=== PATIENT | male | born 1985 ===

== ENCOUNTER → 2017-12-12 | Outpatient (CLI) | payer OTHER ==
[~2017-12-12] MED LIST: ATOR10TA24 PO; METF-411 PO
== END ==
LOC: SPU 08:23
PROVIDERS: ATTEND Physician Assistant Medical
DX: Z02.9 Encounter for administrative examinations, unspecified (principal)

== ENCOUNTER 2017-12-23 16:08 | Outpatient (RCR) | payer OTHER ==
[2017-12-12 13:01] VITALS: BP 161/104
[2017-12-12 14:18] LABS: PLATELET COUNT, AUTOMATED 246 K/uL (150-450)
[2017-12-12 15:00] VITALS: BP 168/104
--- NOTE | 2017-12-12 16:37 | ONCOLOGY FOLLOW UP NOTE ---
EVENT DATE: December 12, 2017 REFERRING PHYSICIAN JERMAN Blakely REASON FOR CONSULTATION Evaluation and management of hereditary hemochromatosis. HEMATOLOGY HISTORY Patient is a 32-year-old male who has a positive family history for hemochromatosis in hie maternal grandfather. Patient was checked for iron and was found to have high iron, so genetic testing for hemochromatosis was done which showed a compound heterozygous for C282Y mutation and H63D mutation. He has liver cirrhosis which showed mild fibrosis and steatohepatitis. His ferritin was high at 1009. Patient was referred for management of his hereditary hemochromatosis. PAST MEDICAL HISTORY 1. Hereditary hemochromatosis. 2. Hypertension. 3. Hypercholesterolemia. PAST SURGICAL HISTORY Liver biopsy, but no other surgeries. FAMILY HISTORY Maternal grandfather had hereditary hemochromatosis. Maternal grandmother with breast cancer. SOCIAL HISTORY Patient is with one child. He works for the [employer]. He drinks about three times per week, shots and beer. Denies any abuse of tobacco or illicit drugs. CURRENT MEDICATIONS 1. Losartan 50 mg daily. 2. Metformin 500 mg daily. ALLERGIES LISINOPRIL which causes flue-like symptoms. REVIEW OF SYSTEMS CONSTITUTIONAL: No appetite or weight change. No fever, chills or sweating. No recent infection. HEENT: Ears: No tinnitus or hearing problem. Nose: He has some nasal discharge sometimes. No epistaxis. Throat: No sore throat or mouth ulcers. Eyes: No diplopia or visual changes. RESPIRATORY: No shortness of breath. No cough, expectoration or hemoptysis. CARDIOVASCULAR: No chest pain, orthopnea, or paroxysmal nocturnal dyspnea (PND) . No edema. No palpitations. GASTROINTESTINAL: No nausea or vomiting. No diarrhea or constipation. No change in bowel movements. No heartburn or swallowing difficulties. No abdominal pain. No jaundice. No hematemesis, melena or rectal bleeding. GENITOURINARY: No hematuria or dysuria. MUSCULOSKELETAL: No pain in the muscles, joints or bones. NEUROLOGICAL: No tingling or numbness in the hands or feet. No headaches or convulsions. HEMATOLOGIC/LYMPHATIC: No bleeding or easy bruising. No weakness or fatigue. No enlarged lymph nodes. SKIN: No skin rash or lumps. PSYCHIATRIC: No anxiety or depression. PHYSICAL EXAMINATION GENERAL: Looks stable. Well-developed, well-nourished, and in no acute distress. VITAL SIGNS: Blood pressure 161/104, pulse 78 per minute, respirations 16 per minute, temperature 96.8, pulse ox 90% on room air. HEENT: Head: Atraumatic. No sinus tenderness to palpation. Eyes: No icterus or conjunctivitis. Mouth and Throat: No oral thrush or mucositis. NECK: Supple. No cervical or supraclavicular lymphadenopathy. LUNGS: Clear to auscultation and percussion bilaterally. HEART: Regular rate and rhythm. No gallops, murmurs, clicks or rubs. ABDOMEN: Soft and lax. No tenderness. No hepatosplenomegaly. No masses. EXTREMITIES: No cyanosis, clubbing or edema. LYMPHATICS: No peripheral lymphadenopathy. NEUROLOGICAL: Conscious, alert and oriented times three. No focal motor or sensory deficits. PSYCHIATRIC: Mood and affect appear normal. SKIN: No skin rash, bruise or purpuric eruption. ASSESSMENT Hereditary hemochromatosis with compound heterozygous state for C282Y and H63D mutations. Patient had initial serum ferritin high at 109. I am planning to start induction phlebotomies, and once we reach our target with ferritin less than 50 and/or iron saturation less than 60%, I am planning to start maintenance phlebotomy sessions after that. I spent a long time with the patient and his explaining the complications of hemochromatosis. I am planning to check his CBC, iron studies with ferritin on a weekly basis, and I will phlebotomize 500 mL of blood as long as his ferritin is above 100 and/or iron saturation more than 60%. I will see him in two months from now with CBC and iron studies with ferritin at that time. PLAN 1. CBC. 2. Iron studies with ferritin. 3. CMP. 4. Phlebotomize 500 mL of blood weekly as long as serum ferritin above 100 and/ or iron saturation above 60%. 5. Patient to return in two months with CBC, chem panel, iron studies with ferritin. 6. Patient is to contact us for any new concerns or complaints. [facility]
[2017-12-22 16:17] LABS: PLATELET COUNT, AUTOMATED 222 K/uL (150-450)
[~2017-12-23 16:08] MED LIST changes: -METF-411 PO; +METF-450 PO
== END 2018-03-12 ==
LOC: SPU 16:08
PROVIDERS: ATTEND Internal Medicine Hematology
DX: E83.119 Hemochromatosis, unspecified (principal); I10 Essential (primary) hypertension; E78.00 Pure hypercholesterolemia, unspecified
CPT/HCPCS: 36415; 82040; 82247; 82310; 82374; 82435; 82565; 82728; 82947; 83540; 83550; 84075; 84132; 84155; 84295; 84450; 84460; 84520; 85025; 99195; 99203